=== PATIENT | male | born 1955 | race Caucasian/White ===

== ENCOUNTER 2023-06-20 20:06 | Emergency (ER) | payer MEDICARE, SELFPAY ==
[2023-06-20 20:08] VITALS: BMI 29.9
[2023-06-20 20:12] VITALS: BP 136/86
--- NOTE | 2023-06-20 20:36 | ED.GENMED ---
History of Present Illness
General
Chief Complaint: Abdominal Symptoms
Source: patient
Exam Limitations: none
Time Seen by Provider: 06/20/23 20:26
Travel History
Have you had any contact with someone who has COVID-19?: No
Do you have any symptoms of coronavirus? Fever > 100 degrees, chills, cough, shortness of breath, sore throat, loss of taste or smell, muscle aches, or headache?: No
History of Present Illness
History of Present Illness:
This is a 68 year old male that comes in with c/o right sided abd pain. States that he went out for dinner and when he got home he started to not feel well. States that he broke out into a sweat, was nauseated, vomiting and had diarrhea. States that
he then got dizzy and lower himself to the bathroom floor as it was cool. States that he laid there for a while and then got back up on the toilet. State that he felt unsure to get up. State that he started with severe right sided abd pain. States
that when EMS got there he also had right sided leg cramp and he was unable to get into the position that they wanted. States that he was SOB and dizzy. Denies any fever, chills, chest pain, headache, urinary burning.
Past History
Past History
ED Past Medical History: None; Negative Asthma, HTN, Hypercholesterolemia or NIDDM
ED Past Surgical History: None
Social History
Tobacco: Non-smoker
Alcohol: Occasional
Drug: None
Personal:
Living: with family
Employment: Employed
Review of Systems
Review of Systems
All Other Systems: ROS reviewed and negative except as documented in HPI and ROS
Constitutional: Reports other (Sweating); Denies fever or chills
EENT: Reports no symptoms
Respiratory: Reports trouble breathing; Denies cough
Cardiac: Reports no symptoms; Denies chest pain
ABD/GI: Reports abdominal pain, nausea, vomiting and diarrhea
: Reports no symptoms; Denies dysuria, frequency or urgency
Musculoskeletal: Reports no symptoms
Skin: Reports no symptoms
Neurological: Reports dizzy; Denies headache
Psychiatric: Reports no symptoms
Phy Exam
General Physical Exam
General Presentation: no apparent distress
General age: appears stated age
General Skin: warm and dry
General Habitus: normal
General Mental: alert
General Hydration: dry mucous membranes
ENT Exam
ENT Exam: TM's normal, pharynx normal and neck supple
Eye Exam
Eye Exam: EOMI
Cardiovascular Exam
Cardiovascular Exam: regular rate/rhythm, no edema, no murmur and normal peripheral pulses
Pulmonary Exam
Pulmonary Exam: lungs clear, no respiratory distress, no rales, chest non tender, no crackles, no rhonchi, no wheezing and no cough
Gastrointestinal Exam
Gastrointestinal Exam: normal bowel sounds, soft, no organomegaly, no pulsatile mass, non distended and tender (Slight right sided tenderness with palpation)
Musculoskeletal Exam
Musculoskeletal Exam: full ROM and no edema
Skin Exam
Skin Exam: normal color, warm/dry, no rash and no petechia
Psychiatric Exam
Psychiatric Exam: normal mood/affect
Course
Orders/Labs/Results
Orders:
Orders
06/20/23 20:34
Complete Blood Count/With Diff Urgent
Comprehensive Metabolic Panel Urgent
Lipase Urgent
06/20/23 20:35
CT Abd/pelvis W Iv Cont Urgent
Comment:
Reason For Exam: Right lower abd pain
0.9% Sodium Chloride 1000 ml [Nss] 1,000 ml IV BOLUS
Abnormal Lab Results
06/20/23
20:34
WBC 12.6 H 10^3/uL
(4.8-10.8)
Abs Immat Gran (auto) 0.1 H 10^3/uL
(0-0.05)
Absolute Neuts (auto) 9.9 H 10^3/uL
(1.4-6.5)
Absolute Monos (auto) 0.9 H 10^3/uL
(0.1-0.6)
Neutrophils % 79.0 H %
(42.2-75.2)
Lymphocytes % 12.8 L %
(20.5-51.1)
Chloride 109 H mmol/L
(98-107)
Glucose 103 H mg/dl
(70-99)
06/20/23 20:34
06/20/23 20:34
Leukocytosis, Glucose nonfasting. Chloride slightly elevated. Lipase normal at 45
Vital Signs
Initial and Last Documented VS:
Initial Vital Signs
Temp Pulse BP Pulse Ox
97.6 F 64 136/86 98
06/20/23 20:12 06/20/23 20:12 06/20/23 20:12 06/20/23 20:12
Last Documented Vital Signs
Temp Pulse BP Pulse Ox
97.6 F 64 136/86 96
06/20/23 20:12 06/20/23 20:12 06/20/23 20:12 06/20/23 20:16
MDM/Problems Addressed
Differential Diagnosis Includes:
Viral GI syndrome, Appendicitis,
MDM/Problems Addressed:
This is a 68 year old male that is brought in by ambulance with c/o right sided abd pain. Patient was out for dinner and when he came home he started to not feel well. States that he was sweaty and then started with vomiting and diarrhea. States
that he also became dizzy and thought he was going to pass out. States that he had right sided abd pain.
Will get labs. CT scan, Give IV fluids. Patient refused pain medication.
Back into see patient. Patient was sleeping. Awakened patient and explained that his blood work shows that his WBC are very slightly elevated. His CT shows that he has Enteritis. There is some sold stool in the bowel and also liquid that is noted.
Encouraged patient to increase his water intake to 8-8oz glasses daily. Patient to stay way form milk and milk products until the diarrhea stops. Patient to try chicken, rice and potatoes that are easily digested. Patient to follow up with the
family doctor. Patient to return with any concerns .
Chronic conditions affecting care:
NA
Acute Exacerbation and/or Progression of Chronic Illness:
NA
*Radiology
Radiology exam reviewed: radiology read reviewed (CT night hawk- NOrmal gallbladder. No biliary dilatation. No hydronephrosis or obstructing urinary calculi. bladder is unremarkable. Mild stool present within the colon. Mild liquid content within
the right colon and small bowel loops in the mid abd and pelvis may relate to enteritis. No free fluid ) and other (CT cont-or free air. Normal appendix. No bowel obstruction or bowel wall thickening. Lung bases are unremarkable. Moderate
degenerative changes within the spine,)
*Pulse Oximetry
Patient hypoxic: no
*EKG
Interpreted by ED Provider?: NA
Rate: EKG- N/A
*Lead Person Interpretation
Heart Rate: 76
Rhythm: sinus
*Critical Care Note
Total Time (30-74mins, 75-104mins- exclusive of procedures): Not Applicable
ED Attending Note
-
Portions of this chart may have been created with voice recognition software.� Occasional wrong word or��sound alike� substitutions may have occurred due to the inherent limitations of voice recognition software.
Discharge Plan
Departure
Patient Disposition: Home (Routine Discharge)
Date of Disposition: 06/20/23
Time of Disposition: 22:19
Patient with high blood pressure during this ER visit?: Yes
Condition: Good
Covid-19: Not Applicable
Discharge Problem:
Enteritis
Instructions: Abdominal Pain, BLOOD PRESSURE
Prescriptions:
No Action
Paxlovid 300 mg (150 mg x 2)-100 mg tablets,dose pack
See Rx Instructions .ROUTE .COMPLEX Qty: 30 0RF
Rx Instructions:
take TWO 150 mg tablets of nirmatrelvir with ONE 100 mg tablet of ritonavir twice daily for 5 days
Referrals:
Kishor Calvert DO [Family Provider] - Call in 1-3 days for appt
Activity Restrictions/Additional Instructions:
As discussed, your blood work shows that your WBC are very slightly elevated. This goes along with a viral illness that is noted on the CT scan. You have enteritis. This will go away just like it came. Please stay away from milk and milk products
until the diarrhea stops. Simple food that is easily digested is Chicken, rice and potatoes. You may use Tylenol 1000mg every 6 hours for pain and/or Ibuprofen 600mg every 6 hours with food. Follow up with the family doctor. Increase your water
intake to 8-8oz glasses daily. IF YOU HAVE INCREASED OR CHANGING ABD PAIN, OR YOU HAVE ANY OTHER CONCERNS PLEASE RETURN TO THE EMERGENCY ROOM.
Interventions
Interventions:
*Risk Screen - Suicide Last Done: 06/20/23 20:08
*General Assessment Last Done: 06/20/23 20:08
*Neglect/Abuse Screening Last Done: 06/20/23 20:08
ED- Fall Risk Assessment Last Done: 06/20/23 20:16
*ED COVID-19 Vaccine History Last Done: 06/20/23 20:12
OV-Xhewia-Mphmtqvvbl Assessment Last Done: 06/20/23 20:16
[2023-06-20] MEDS: NSS 1000 IV (20:45)
[2023-06-20 20:48] LABS: % Basophils 0.3 % (0-2); % Eosinophils 0.5 % (0-6); % Immature Granulocytes 0.4 % (0-0.5); % Lymphocytes 12.8 % (20.5-51.1); Absolute Eosinophils 0.1 10^3/uL (0-0.7); Absolute Immature Granulocytes 0.1 10^3/uL (0-0.05); Absolute Lymphocytes 1.6 10^3/uL (1.2-3.4); Absolute Monocytes 0.9 10^3/uL (0.1-0.6); Absolute Neutrophils 9.9 10^3/uL (1.4-6.5); Hematocrit 42.4 % (39.0-52.0); Hemoglobin 14.9 g/dL (13.0-18.0); Mean Corp Hgb Conc. 35.1 g/dL (33.0-37.0); Mean Corpuscular Hgb 30.4 pg (27.0-31.0); Mean Corpuscular Volume 86.5 fL (80.0-94.0); Mean Platelet Volume 9.2 fL (7.4-10.4); Nucleated Red Blood Cells % 0 % (-); Platelet Count 201 10^3/uL (130-400); Red Cell Dist. Width 13.1 % (11.5-14.5); White Blood Cell Count 12.6 10^3/uL (4.8-10.8)
[2023-06-20 21:00] VITALS: BP 128/85
[2023-06-20 21:03] LABS: ALT (SGPT) 32 U/L (0-50); AST (SGOT) 30 U/L (17-59); Albumin 4.1 g/dl (3.5-5.0); Alkaline Phosphatase 89 U/L (38-126); Blood Urea Nitrogen 20 mg/dl (9-20); Calcium 8.6 mg/dl (8.4-10.2); Carbon Dioxide 24 mmol/L (22-30); Chloride 109 mmol/L (98-107); Estimated Creatinine Clearance 100 ml/min; Glucose 103 mg/dl (70-99); Lipase 45 U/L (23-300); Potassium 3.5 mmol/L (3.5-5.1); Sodium 139 mmol/L (135-145); Total Bilirubin 0.6 mg/dl (0.2-1.3); Total Protein 6.8 g/dl (6.3-8.2); eGFR > 60.00
[2023-06-20 22:00] VITALS: BP 148/87
== END 2023-06-20 22:40 | disposition home or self-care (01) ==
LOC: EMR 20:06
PROVIDERS: EMERGENCY PHYSICIAN Emergency Medicine; FAMILY PHYSICIAN Family Medicine
DX: R10.9 Unspecified abdominal pain (principal); R11.2 Nausea with vomiting, unspecified; K52.9 Noninfective gastroenteritis and colitis, unspecified
CPT/HCPCS: 99284; 96360; 74177; 80053; 83690; 85025; Q9967

== ENCOUNTER → 2023-08-26 06:36 | Day surgery (SDC) | payer MEDICARE, SELFPAY | LOC: GI 06:36 | PROVIDERS: ATTENDING PHYSICIAN Surgery; FAMILY PHYSICIAN Family Medicine | DX: Z12.11 Encounter for screening for malignant neoplasm of colon (principal); D12.2 Benign neoplasm of ascending colon; K57.30 Diverticulosis of large intestine without perforation or abscess without bleeding; Z86.010 Personal history of colon polyps | CPT/HCPCS: 45380; 88305 ==

== ENCOUNTER 2024-05-27 18:52 | Inpatient (IN) | payer OTHER, SELFPAY ==
[2024-05-27] VITALS (18 sets, daily range): BP systolic 71–158; BP diastolic 54–97; BMI 30.9
[2024-05-27 15:55] LABS: % Basophils 0.2 % (0-2); % Eosinophils 0.3 % (0-6); % Immature Granulocytes 0.3 % (0-0.5); % Lymphocytes 8.8 % (20.5-51.1); % Monocytes 4.2 % (1.7-9.3); % Neutrophils 86.2 % (42.2-75.2); Absolute Lymphocytes 0.9 10^3/uL (1.2-3.4); Absolute Monocytes 0.4 10^3/uL (0.1-0.6); Absolute Neutrophils 8.4 10^3/uL (1.4-6.5); Hematocrit 42.6 % (39.0-52.0); Hemoglobin 14.5 g/dL (13.0-18.0); Mean Corpuscular Volume 88.2 fL (80.0-94.0); Mean Platelet Volume 9.3 fL (7.4-10.4); Nucleated Red Blood Cells % 0 % (-); Platelet Count 209 10^3/uL (130-400); Red Blood Cell Count 4.83 10^6/uL (4.70-6.10); Red Cell Dist. Width 12.8 % (11.5-14.5); White Blood Cell Count 9.8 10^3/uL (4.8-10.8)
--- NOTE | 2024-05-27 16:06 | ED.GENMED ---
History of Present Illness
General
Chief Complaint: Fainting/Passed Out
Source: patient
Exam Limitations: none
Time Seen by Provider: 05/27/24 15:41
Nursing documentation reviewed up to this point in time: agreed with
History of Present Illness
History of Present Illness:
Patient presents to ED secondary to sudden onset of weakness, chills, dizziness, and nausea, after he came back home from running errands. Patient does report having had root canal performed this morning on 830 dentist office, during which time he
received local anesthesia. Patient came home and took first tablet of amoxicillin around 10 AM. Patient went outside to run errands and on his way back, that is when he started to feel aforementioned symptoms. Due to extreme weakness and
dizziness, patient reports falling down and hitting his head in the process. Patient was able to call his to come home, prior to passing out. When 911 arrived at scene, patient was ill-appearing with initial blood pressure systolic in the 60s
with heart rate in the 30s to 50s. Since then, patient has become more awake with stable vital signs. Upon arrival, patient states that he is feeling better, but does feel slightly dizzy and queasy. Denies chest pain or shortness of breath.
Denies palpitations preceding syncope. Denies recent illness. Denies sick contact. Denies recent change in medications or diet. Denies previous history of similar symptoms. Patient otherwise is healthy and does not take any medications daily.
Past History
Past History
ED Past Medical History: None; Negative Asthma, HTN, Hypercholesterolemia or NIDDM
ED Past Surgical History: None
Social History
Tobacco: Non-smoker
Alcohol: Occasional
Drug: None
Personal:
Living: with family
Employment: Employed
Review of Systems
Review of Systems
Allergies reviewed?: Yes
All Other Systems: ROS reviewed and negative except as documented in HPI and ROS
Constitutional: Reports no symptoms
Respiratory: Reports no symptoms
Cardiac: Reports no symptoms
ABD/GI: Reports no symptoms
Musculoskeletal: Reports no symptoms
Skin: Reports no symptoms
Neurological: Reports no symptoms
Phy Exam
Physical Exam
Physical Exam:
Physical Exam
General: no apparent distress, not acutely ill. afebrile
Head: nc/at. eomi
Neck: supple. normal range of motion.
Heart: s1/s2 regular rate and rhythm, no murmur. equal radial pulses.
Lungs: no acute respiratory distress. clear bilaterally
Abdomen: normal bowel sounds. not tender.
Neuro: alert and oriented x 3. no focal neurological deficits
Skin: no rash
Psychiatric: well kept. interactive and cooperative
Extremities: no edema. no calf tenderness.
Course
Orders/Labs/Results
Orders:
Orders
05/27/24 Dinner
Clear Liquid
At Your Request: Full Participation
05/27/24 15:41
Electrocardiogram (*1) Urgent
Reason for Study: Other
Other Reason for Exam: Respiratory Distress
EKG- Treatment ONCE
05/27/24 15:44
COVID-19 Antigen Urgent
Source: Nasal Swab
Complete Blood Count/With Diff Urgent
Comprehensive Metabolic Panel Urgent
Influenza A+B Rapid Molecular Urgent
LIZZY Source: Nasal Swab
Specimen Description:
05/27/24 16:13
0.9% Sodium Chloride 500 ml [Nss] 500 ml IV BOLUS
05/27/24 16:38
CT Head W/o Iv Contrast Urgent
Comment:
Reason For Exam: syncope with trauma
05/27/24 16:57
Blood Culture Q30M
LIZZY Source: Blood/Venous
Specimen Description:
Blood Culture Q30M
LIZZY Source: Blood/Venous
Specimen Description:
05/27/24 17:10
Atropine Sulfate [Atropine 0.1 mg/ml Syringe] 0.5 mg IV NOW STA
05/27/24 17:47
Acetaminophen [Tylenol] 650 mg PO NOW STA
Ibuprofen [Motrin] 400 mg PO NOW STA
05/27/24 17:49
CARDIOLOGY CONSULT Routine
Consulting Provider: Ricardo Bates
Was physician already notified: Yes
05/27/24 18:43
Admit/Transfer Patient As Directed
Co-Sign Provider:
Level of Care: Inpatient admission
Assign to:: IVU
Physician / Group: bailey tong
Diagnosis: syncope likely vasovagal, diarrhea concern viral vs bacterial new RBBB
Reason for Hospitalization: syncope likely vasovagal, diarrhea concern viral vs bacterial new RBBB
Expected length of stay greater than two midnights?: Yes
ELOS- Estimated Length of Stay in days: 3
I certify the patient meets the requirements for IP care: Yes
Code Status As Directed
Resuscitation Status: Full Code
05/27/24 18:45
PRN Pain Medication Management As Directed
May give lesser potent ordered pain med per pt: Yes
preference::
Protocol:: Medication orders for pain may be administered in a
manner that supports deferring to patient preference
when the pt is:
- Requesting an ordered lesser potent pain medication.
Least to most potent pain medications are defined
as: acetaminophen < NSAID < tramadol < opioids
(morphine, oxycodone, hydromorphone).
- Requesting a lesser dose of the same medication IF
ORDERED.
- Requesting a less intrusive route of administration
if both routes are prescribed by the provider (PO <
IV).
05/27/24 18:46
Norovirus by PCR Routine
LIZZY Source: Feces/Stool
Specimen Description:
STOOL [C difficile Antigen & Toxins] Routine
LIZZY Source: Feces/Stool
Specimen Description:
Stool Culture Routine
LIZZY Source: Feces/Stool
Specimen Description:
Stool For WBC Routine
LIZZY Source: Feces/Stool
Specimen Description:
05/27/24 18:49
Troponin I Urgent
05/27/24 18:51
Ampicillin/Sulbactam 3 G [Unasyn] 3 gm 0.9% Sodium Chloride 100 ml [Nss] 100 ml IV NOW
05/27/24 20:06
Ondansetron Injectable [Zofran] 4 mg IV Q6HPRN PRN
05/27/24 20:06
Activity As Directed
Activity Level: With Assistance
Intake/ Output As Directed
Frequency: Per unit guidelines
Pneumatic Compression Sleeves As Directed
Type: Knee high
Vital Signs As Directed
Frequency: Per unit guidelines
OT Consult [Ot Eval And Treat] Routine
Ot Eval And Treat Routine
Pt Eval And Treat Routine
Activity Level: As Tolerated
DX Deep Vein Thrombosis Video Routine
05/27/24 22:00
Acetaminophen [Tylenol] 650 mg PO Q4HPRN PRN
05/28/24 00:00
Ibuprofen [Motrin] 400 mg PO Q6HPRN PRN
05/28/24 02:00
Ampicillin/Sulbactam 3 G [Unasyn] 3 gm 0.9% Sodium Chloride 100 ml [Nss] 100 ml IV Q6H
05/28/24 06:00
EKG [Electrocardiogram (*1)] IN AM
Reason for Study: Abnormal EKG
Complete Blood Count/With Diff IN AM
Comprehensive Metabolic Panel IN AM
Magnesium IN AM
Troponin I IN AM
05/28/24 08:00
Orthostatic Vital Signs As Directed
Orthostatic VS Frequency: Daily
Abnormal Lab Results
05/27/24 05/27/24
15:44 17:02
Absolute Neuts (auto) 8.4 H 10^3/uL
(1.4-6.5)
Absolute Lymphs (auto) 0.9 L 10^3/uL
(1.2-3.4)
Neutrophils % 86.2 H %
(42.2-75.2)
Lymphocytes % 8.8 L %
(20.5-51.1)
BUN 23 H mg/dl
(9-20)
Glucose 122 H mg/dl
(70-99)
POC Glucose 113 H mg/dl
(70-99)
05/27/24 15:44
05/27/24 15:44
Vital Signs
Initial and Last Documented VS:
Initial Vital Signs
Temp Pulse Resp BP Pulse Ox
98 F 86 16 127/87 99
05/27/24 15:32 05/27/24 15:32 05/27/24 15:32 05/27/24 15:32 05/27/24 15:32
Last Documented Vital Signs
Temp Pulse Resp BP Pulse Ox
97.7 F 96 20 149/92 95
05/27/24 20:00 05/27/24 19:45 05/27/24 20:00 05/27/24 19:30 05/27/24 20:00
MDM/Problems Addressed
MDM/Problems Addressed:
Patient initial presentation consistent with likely vasovagal response, with improvement over time.
During evaluation in ED, while lying in stretcher, patient noted to once again become diaphoretic and dizzy, associated with hypotension and bradycardia, resulting in brief episode of syncope. Sinus bradycardia noted on the monitor. At which
point, patient was given 0.5 mg atropine, with improvement in symptoms along with improved heart rate.
Discussed with Dr.DL Bates (cardiology) - symptoms appear to be vasovagal in nature. Does not feel that an acute cardiac intervention is necessary at this time. Will see patient as consult.
Critical care statement: A total of 40 minutes of critical care time was provided for this patient. This includes management of unstable vital signs, evaluation of the patient at bedside, reviewing the patient's pertinent medical records, discussion
with consultants, review of old EKGs and review of pertinent medical records. This time with separate from time utilized to perform the aforementioned documented procedures
*EKG
Interpreted by ED Provider?: Yes
Heart Rate: 85
Rate: normal
Rhythm: sinus
[place]: normal axis
Interval: normal interval
*Critical Care Note
Total Time (30-74mins, 75-104mins- exclusive of procedures): 40 min
ED Attending Note
-
Portions of this chart may have been created with voice recognition software.� Occasional wrong word or��sound alike� substitutions may have occurred due to the inherent limitations of voice recognition software.
Discharge Plan
Departure
Patient Disposition: Admit
Date of Disposition: 05/27/24
Time of Disposition: 17:42
Admit to: Telemetry
Presentation/result/management discussed w/ accepting MD/DO: Hospitalist
Discharge Problem:
Syncope
Interventions
Interventions:
*Risk Screen - Suicide Last Done: 05/27/24 19:00
*General Assessment Last Done: 05/27/24 15:33
*Neglect/Abuse Screening Last Done: 05/27/24 15:33
ED- Fall Risk Assessment Last Done: 05/27/24 15:33
*Nursing Disposition Last Done: 05/27/24 19:42
ED- Cardiac Assessment Last Done: 05/27/24 17:29
ED- Neurological Assessment Last Done: 05/27/24 16:04
Discharge Date and Time
Discharge Date/Time: 05/27/24 19:42
[2024-05-27 16:08] LABS: ALT (SGPT) 23 U/L (0-50); AST (SGOT) 22 U/L (17-59); Albumin 4.4 g/dl (3.5-5.0); Alkaline Phosphatase 85 U/L (38-126); Blood Urea Nitrogen 23 mg/dl (9-20); Calcium 9.3 mg/dl (8.4-10.2); Carbon Dioxide 25 mmol/L (22-30); Chloride 102 mmol/L (98-107); Estimated Creatinine Clearance 74 ml/min; Glucose 122 mg/dl (70-99); Potassium 3.7 mmol/L (3.5-5.1); Sodium 137 mmol/L (135-145); Total Bilirubin 0.8 mg/dl (0.2-1.3); Total Protein 7.2 g/dl (6.3-8.2); eGFR > 60.00
[2024-05-27 16:38] LABS: COVID-19 Antigen Negative (Negative)
[2024-05-27] MEDS: NSS 500 IV (16:38)
[2024-05-27] MEDS: ATROPINE 0.1 MG/ML SYRINGE 0.5 MG IV (17:10)
--- NOTE | 2024-05-27 17:11 | EDRN ---
Pt became diaphoretic, was unresponsive and became bradycardic @ 38-42 bpm, left eye gaze, pt can nod yes/no, alert after 1/[address] scan.
[2024-05-27 17:13] LABS: Glucose - Point of Care 113 mg/dl (70-99)
--- NOTE | 2024-05-27 17:55 | HPS.HSE ---
Family Physician
-
Family Physician: INTERVIEWE UNKNOWN - PT NOT
Chief Complaint
-
Dry heaves, watery diarrhea, syncope
History of Present Illness
69-year-old male who presented to the ER complaining of feeling hot with belly cramping he then was trying to get to the bathroom but was feeling very hot and passed out he states he had watery stool everywhere all over the bathroom as he was trying
to make it to the powder room where he eventually was and was dry heaving. His states he did pass out in the kitchen after multiple episodes of diarrhea. The patient does recall being told he passed out in the kitchen he does not the
incident. He does however remember feeling abdominal cramping feeling very hot and nauseous as if going to pass out. He does report a root canal this morning at 830 where he he had local anesthesia around the gumline. He states after that he and
his went out shopping and he felt fine they both ate a separate soft pretzel. He then came home and that is when his abdominal cramping started. He did take prior Tylenol, Motrin and 1 dose of amoxicillin. His reports this is not the
first time he has passed out he passed out before when his finger was caught or if he tends to get anything abdominal related otherwise he is fine. EMS arrived at the home and noted that his blood pressure was systolic 60s with heart rate in the
30s to 50s. Upon arrival in the ER he was reporting he felt better however he was complaining of feeling dizzy and queasy. He denies headache, fever, chills, chest pain, palpitations, cough, shortness of breath, abdominal pain, vomiting, diarrhea,
sick contacts, recent illness . He has past medical history of syncope post cutting his finger
Medical History
Past Medical History
Past Medical History: Reports Other
Additional Past Medical History:
Syncope post cutting his finger
Past Surgical History: Reports None
Social History
Tobacco: Non-smoker
Alcohol: Occasional
Drug: None
Personal:
Living: With Family ()
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
Family History
Family History: Other (Father CVA, 77, mother living age 92 balance disorder)
Allergies / Home Medications
Allergies reflects when Allergies were last updated in [employer].
Home Medications with original date entered in [employer]
Allergy/Medication List:
Allergies
Allergy/AdvReac Type Severity Reaction Status Date / Time
No Known Allergies Allergy Verified 05/27/24 15:33
Home Medications
acetaminophen 325 mg tablet (Tylenol) 650 mg PO Q6HPRN PRN mild pain 05/27/24
amoxicillin 500 mg capsule 500 mg PO Q8H 05/27/24
Review of Systems
-
History Source: Patient and Family ( and daughter )
A 12 point ROS was completed and negative except as noted: Yes
Constitutional: Denies Fever, Fatigue or Chills
EENT: Reports Other (Dental pain left-sided status post root canal); Denies Sore Throat
Respiratory: Denies Cough or Trouble Breathing
Cardiac: Reports Diaphoresis and Syncope (Post abdominal pain/diarrhea); Denies Chest Pain or Palpitations
Abdomen/GI: Reports Abdominal Pain, Nausea (Dry heaves) and Diarrhea (Watery diarrhea); Denies Constipated, Bloody Stools or Black Stools
: Denies Dysuria, Frequency, Flank Pain, Incontinence, Difficulty Voiding, Urgency or Bleeding
Musculoskeletal: Denies Joint Pain or Edema
Skin: Denies Itching or Rash
Neurological: Reports Dizzy; Denies Headache or Weakness
Endocrine: Reports No Symptoms
Hematologic/Lymphatic: Reports No Symptoms
Psych: Reports Calm
Physical Exam
Vital Signs
Vital Signs
Temp Pulse Resp BP Pulse Ox
98.8 F 84 15 137/79 99
05/27/24 15:33 05/27/24 17:30 05/27/24 17:30 05/27/24 17:30 05/27/24 17:30
Physical Exam
General: Conversant and Pain (Abdomen); No Fever or Chills
HEENT: NormoCephalic, Anicteric, PERRLA, [place] Conjunctivae and No Ptosis
Respiratory: Clear; No Wheezes, Rales or Rhonchi
Cardiac: S1/S2 and Regular Rhythm; No Murmur, Rub, Gallop or Peripheral Edema
Breast: Deferred by me
GI: Soft, Non Tender, Non Distended, Normal Bowel Sounds and No Hepatosplenomegaly
Genito-urinary: Deferred by me
Musculoskeletal: No Clubbing, No Cyanosis and No Edema
Skin: Warm and Dry; No Rash or Jaundice
Neuro: Awake, Alert, Oriented (X 3 but is forgetful about today and incidents that occurred he states due to passing out he is unsure), No Motor Deficits (Moving all extremities in bed), Cranial Nerves Intact and No Sensory Deficits; No Slurred
Speech, Facial Droop, Tremors or Sedated
Psych: Anxious
Laboratory Results
-
05/27/24 15:44
05/27/24 15:44
Laboratory Results
Total Bilirubin 0.8 mg/dl (0.2-1.3) 05/27/24 15:44
AST 22 U/L (17-59) 05/27/24 15:44
ALT 23 U/L (0-50) 05/27/24 15:44
Alkaline Phosphatase 85 U/L (38-126) 05/27/24 15:44
Data Reviewed
-
CT Scan: Report Reviewed by me
Lab Data: Labs Reviewed by me
Impression/Plan
-
Impression/plan:
Admit to IVU
#Syncope with Bradycardia likely vasovagal from abdominal pain /Acute watery diarrhea-dry heaves
Reported approximately 4 syncopal events today
-COVID, influenza negative
-Consult [facility] cardiology
-2D Echo
-Check C. difficile, norovirus stool cultures, stool WBC
-IV NSS given in ER we will hold on further fluids
-May give clear liquid diet
-IV Unasyn
-IV Zofran as needed
CT head: No acute intracranial abnormality
#RBBB�new
-Consult [facility] cardiology
-2D Echo
EK bpm, NSR, incomplete RBBB
no significant change from July 04, 2020
#Infected tooth status post root canal today 05/27/2024
-Patient to be on amoxicillin due to current dry heaving will change to IV Unasyn
DVT prophylaxis
SCDs
Full code
[2024-05-27] MEDS: TYLENOL 650 MG PO ×2 (18:20→21:52)
[2024-05-27] MEDS: MOTRIN 400 MG PO (18:20)
--- NOTE | 2024-05-27 18:44 | W.PN.UPDATE ---
Update Note
Progress Note Update
69-year-old male, history of syncope, who had root canal procedure in the morning, was running errands, and passed out later in the day.
Apparently also complained of watery diarrhea that started on day of admission.
Per ED signout, patient was found hypotensive with bradycardia, status post atropine 0.5. Cardiology was consulted and felt vasovagal syncope in nature.
A/P:
# Syncope, suspect vasovagal, but will admit to workup cardiogenic cause
CT head NAD
EKG reviewed, normal sinus rhythm, incomplete RBBB
Check echo, orthostatic vital sign, monitor telemetry, for completeness sake
Clear liquid for now due to patient's complaint of nausea, advance diet as tolerated
Cardiology consult
PT OT eval
# Acute watery diarrhea
COVID, influenza negative
Follow stool culture, C. difficile and norovirus
# Status post on day of admission 05/27/2024
Can cover with IV Unasyn in place of prior to admission amoxicillin
DVT prophylaxis SCDs
Full code
Discussed with several family members at bedside
[2024-05-27] MEDS: UNASYN IV (19:00)
--- NOTE | 2024-05-27 19:04 | EDRN ---
attempted to call report to IVU, will call back in 15 minutes again.
--- NOTE | 2024-05-27 22:10 | PTCARENOTE ---
received the patient from the ED. AAOx3. family at the bedside. denies any lightheadedness/dizziness. ambulated from the stretcher to the bed with no issues. complains of left upper tooth pain- root canal this morning prior to admission. SR-ST on
tele 70s-100s. increased HR with movement. bp stable. reviewed plan of care with patient. verbalized understanding. educated patient to inform RN with any new changes. call jones within reach.
[2024-05-28] VITALS (11 sets, daily range): BP systolic 91–156; BP diastolic 62–94; PULSE 79–87
[2024-05-28] MEDS: UNASYN IV ×3 (02:38→14:19)
[2024-05-28 03:49] LABS: % Basophils 0.2 % (0-2); % Eosinophils 2.8 % (0-6); % Immature Granulocytes 0.3 % (0-0.5); % Lymphocytes 7.5 % (20.5-51.1); % Neutrophils 76.2 % (42.2-75.2); Absolute Eosinophils 0.3 10^3/uL (0-0.7); Absolute Lymphocytes 0.7 10^3/uL (1.2-3.4); Absolute Monocytes 1.2 10^3/uL (0.1-0.6); Absolute Neutrophils 7.1 10^3/uL (1.4-6.5); Hematocrit 38.7 % (39.0-52.0); Mean Corp Hgb Conc. 33.6 g/dL (33.0-37.0); Mean Corpuscular Hgb 29.7 pg (27.0-31.0); Mean Corpuscular Volume 88.4 fL (80.0-94.0); Mean Platelet Volume 9.3 fL (7.4-10.4); Nucleated Red Blood Cells % 0 % (-); Platelet Count 190 10^3/uL (130-400); Red Blood Cell Count 4.38 10^6/uL (4.70-6.10); Red Cell Dist. Width 12.8 % (11.5-14.5); White Blood Cell Count 9.3 10^3/uL (4.8-10.8)
[2024-05-28 04:11] LABS: ALT (SGPT) 18 U/L (0-50); AST (SGOT) 19 U/L (17-59); Albumin 3.1 g/dl (3.5-5.0); Alkaline Phosphatase 63 U/L (38-126); Blood Urea Nitrogen 32 mg/dl (9-20); Calcium 8.4 mg/dl (8.4-10.2); Carbon Dioxide 23 mmol/L (22-30); Chloride 108 mmol/L (98-107); Estimated Creatinine Clearance 69 ml/min; Glucose 104 mg/dl (70-99); Magnesium 1.8 mg/dl (1.6-2.3); Potassium 4.3 mmol/L (3.5-5.1); Sodium 137 mmol/L (135-145); Total Bilirubin 0.6 mg/dl (0.2-1.3); Total Protein 6.1 g/dl (6.3-8.2); eGFR > 60.00
[2024-05-28 04:19] LABS: Troponin I < 0.012 ng/ml
[2024-05-28] MEDS: TYLENOL 650 MG PO ×2 (04:25→12:25)
[2024-05-28] MEDS: MOTRIN 400 MG PO ×2 (04:26→12:24)
--- NOTE | 2024-05-28 05:57 | PTCARENOTE ---
patient slept well overnight. no episodes of bradycardia/hypotension/syncope. SR 70s.
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
--- NOTE | 2024-05-28 11:54 | W.PN.HOSP.TC ---
Today's Communication/Plan
-
DC today if tolerating diet , after lunch.
Assessment / Plan
Assessment / Plan
69-year-old male, history of syncope, who had root canal procedure in the morning, was running errands, and passed out later in the day.
Patient was found hypotensive with bradycardia, status post atropine 0.5.
Cardiology was consulted and felt vasovagal syncope in nature.
A/P:
# Syncope, suspect vasovagal, but will admit to workup cardiogenic cause
-CT head NAD
EKG reviewed, normal sinus rhythm, incomplete RBBB, repeat EKG NSR, rate increased to 81 today
Advance diet as tolerated-tolerated breakfast well
Cardiology consult appreciated-they suspect vasovagal syncope, and rec ok to DC after lunch if tolerating diet, with Cards f/u -they will arrange for outpatient monitoring, and echocardiogram and follow-up visit.
PT eval
# Acute watery diarrhea
COVID, influenza negative
Follow stool culture, C. difficile and norovirus
stable today-normal BM today
# Status post root canal, day of admission 05/27/2024
Can cover with IV Unasyn in place of prior to admission amoxicillin- will change back to OP abx on DC
DVT prophylaxis SCDs
Full code
Discussed with several family members at bedside
Plan to dc later today
Full code
Anticipated Discharge: Today
Subjective/Interval History
-
Date of Service: May 28, 2024
The patient feels a lot better today. Seen by Cards.
No further events on the monitor.
No CP, no SOB, no palps.
No n/v/d
Objective Data
-
Labs:
Laboratory Results
05/28/24
03:14
WBC 9.3
Hgb 13.0
Hct 38.7 L
Plt Count 190
Sodium 137
Potassium 4.3
Chloride 108 H
Carbon Dioxide 23
BUN 32 H
Creatinine 1.3
Glucose 104 H
Calcium 8.4
Total Bilirubin 0.6
AST 19
ALT 18
Alkaline Phosphatase 63
Vital Signs:
Vital Signs
Temp Pulse Resp BP Pulse Ox
97.7 F 92 18 98/62 95
05/28/24 08:03 05/28/24 03:15 05/28/24 08:03 05/28/24 03:11 05/28/24 08:15
I&O
05/27/24 05/28/24 05/29/24
06:59 06:59 06:59
Intake Total 250 / 250
Output Total 400 / 400
Balance -150 / -150
Review of Systems
-
All other systems: Reviewed and negative
Physical Exam
-
General: Well Developed, Well Nourished, No Apparent Distress and Comfortable
HEENT: Normocephalic, Atraumatic and Moist Mucous Membranes
Respiratory: Clear to Auscultation
Cardiac: Regular Rhythm and S1/S2
GI: Soft, Nontender and Nondistended
Musculoskeletal: No Clubbing, No Cyanosis and No Edema
Neuro: AO x 3 and No Motor Deficits
Psych: Calm
Data Reviewed
-
Labs: Labs Reviewed by me
--- NOTE | 2024-05-28 16:30 | W.DCSUMMARY ---
Discharge Summary
Discharge Data
Date of Admission: 05/27/24
Date of Discharge: 05/28/24
-
Pending Results: No
Hospital Course
HPI: 69-year-old male, history of syncope, who had root canal procedure in the morning, was running errands, and passed out later in the day.
Apparently also complained of watery diarrhea that started on day of admission. Per ED signout, patient was found hypotensive with bradycardia, status post atropine 0.5. Cardiology was consulted and felt vasovagal syncope in nature.
The patient was admitted for work-up for possible cardiogenic syncope. CT head NAD, EKG showed incomplete RBBB. Diarrhea improved, negative for C. Difficile, no WBC in stool, blood cultures NGTD, COVID 19 negative, Flu negative; Pt was continued on
IV Unasyn antibiotics s/p root canal/infected tooth. Cardiology consultation was placed. Repeat EKG with improved rate. The patient advanced diet, and tolerated it well. No further cardiac events while in the hospital. Per cardiology noted, the
triggers for his fairly profound episode yesterday likely include the administration of epinephrine and volume depletion with possible underlying pain and anxiety related to the dental procedure. Cardiology suspected vasovagal etiology for syncope,
and also recommend the patient follow-up with echocardiogram and outpatient cardiac monitoring, which they have arranged. He was discharged on home meds including outpatient antibiotics and OTC motrin, for f/u with his PCP and Cardiology.
The patient was discharged to home in stable and improved condition.
Discharge Plan
-
Patient Disposition: Home (Routine Discharge)
Discharge Diagnosis/Procedures: Vasovagal syncope
Diet: Low Cholesterol
Activity: No restrictions
Driving Restrictions: Limit drive until you are seen by your doctor
Bathing Restrictions: None
Others Tests: Echocardiogram to be arranged by your Spot Worker, Holter Monitor to be arranged by your Spot Worker
Referrals:
Ricardo Bates MD [Active] - (Cardiology office will call you on Thursday05/30/[address], echocardiogram, and follow up appointment. )
UNKNOWN - PT NOT,INTERVIEWE [Family Provider] - (Follow up with your primary care doctor in [address] Kishor Calvert)
Prescriptions:
Continued
amoxicillin 500 mg Capsule
500 mg PO Q8H
Rx Instructions:
START 05/27/24 X7 DAYS
acetaminophen [Tylenol] 325 mg Tablet
650 mg PO Q6HPRN PRN (Reason: mild pain)
Discharge Orders:
Discharge Patient (As Directed); Ordered 05/28/24
Ordered By: Arabella Montero
Discharge Date and Time
Discharge Date/Time: 05/28/24 17:06
Print Language: CANADIAN
--- NOTE | 2024-05-28 17:02 | PTCARENOTE ---
05/28/24 1700 Discharge order given, IV and Telem pack removed. Explained discharge instructions, medications and calling to make f/u appointments. Pt had tolerated eating breakfast and lunch. VSS and afebrile during shift, Pulse ox>95% on room air.
Worked with PT-was cleared for home. Pt and walked around in room and in hallway without any s/s symptoms of lightheaded and dizziness.
== END 2024-05-28 17:06 | disposition home or self-care (01) | DRG 315 ==
LOC: IVU 18:52
PROVIDERS: Clinical Nurse Specialist Family Health; ADMITTING PHYSICIAN Internal Medicine; ATTENDING PHYSICIAN Internal Medicine; CONSULT PHYSICIAN Internal Medicine Cardiovascular Disease; EMERGENCY PHYSICIAN Emergency Medicine
DX: I95.9 Hypotension, unspecified (principal); I47.19 Other supraventricular tachycardia; R55 Syncope and collapse; I45.10 Unspecified right bundle-branch block; R19.7 Diarrhea, unspecified; E86.9 Volume depletion, unspecified; T44.5X5A Adverse effect of predominantly beta-adrenoreceptor agonists, initial encounter; Z11.52 Encounter for screening for COVID-19; Z82.3 Family history of stroke; Z98.818 Other dental procedure status
CPT/HCPCS: 70450; 80053; 82962; 83735; 84484; 85025; 87040; 87045; 87046; 87324; 87427; 87449; 87502; 87798; 87811; 89055; 93005; 96365; 96375; 97162; 99291

== ENCOUNTER → 2024-06-16 07:00 | Outpatient (REF) | payer OTHER, SELFPAY | LOC: RCS 07:00 | PROVIDERS: ATTENDING PHYSICIAN Internal Medicine Cardiovascular Disease; FAMILY PHYSICIAN Family Medicine | DX: R55 Syncope and collapse (principal); R00.1 Bradycardia, unspecified | CPT/HCPCS: 93306 ==

== ENCOUNTER 2024-11-25 12:49 | Inpatient (IN) | payer OTHER, SELFPAY ==
[2024-11-25] VITALS (14 sets, daily range): BP systolic 91–166; BP diastolic 49–103; BMI 31.7; BMI 32.0
[2024-11-25 08:15] LABS: Urine Character Slightly Cloudy (Clear)
[2024-11-25] MEDS: ATIVAN 0.5 MG IV ×2 (08:31→08:49)
[2024-11-25] MEDS: TORADOL 15 MG IV (08:32)
[2024-11-25 08:36] LABS: Urine Red Blood Cell 0-2 /HPF (0-2); Urine Squamous Cell 0-2 /LPF (Few)
--- NOTE | 2024-11-25 08:37 | ED.GENMED ---
History of Present Illness
General
Chief Complaint: Urinary Symptoms
Source: patient and spouse
Exam Limitations: none
Time Seen by Provider: 11/25/24 08:06
Nursing documentation reviewed up to this point in time: agreed with
History of Present Illness
History of Present Illness:
69-year-old male presenting to the emergency department today with concerns of frequent urination and chills achiness starting yesterday. Claims that he thinks he had a fever this morning and took Tylenol. Denies any chest pain shortness of
breath. Does have a history of enlarged prostate but does not take any daily medications.
Past History
Past History
ED Past Medical History: None; Negative Asthma, HTN, Hypercholesterolemia or NIDDM
ED Past Surgical History: None
Social History
Tobacco: Non-smoker
Alcohol: Occasional
Drug: None
Personal:
Living: with family
Employment: Employed
Review of Systems
Review of Systems
Allergies reviewed?: Yes
All Other Systems: ROS reviewed and negative except as documented in HPI and ROS
Phy Exam
Physical Exam
Physical Exam:
GENERAL: Alert , in no apparent distress
EYE: pupils equal and reactive
NECK: Supple, no significant adenopathy.
ENT: o/p clr, mmm.
CARDIAC: Regular rate and rhythm .
LUNGS: Clear breath sounds bilaterally, no acute respiratory distress, no wheezes/rales/rhonchi
ABDOMEN: Soft, without focal tenderness, no r/g, no cvat
NEUROLOGICAL: Alert and oriented, no focal neuro deficits
SKIN: Warm and dry, skin intact.
MUSCULOSKELETAL: No edema, well perfused.
PSYCH: Normal and appropriate interaction.
Course
Orders/Labs/Results
Orders:
Orders
11/25/24
Electrocardiogram (*1) Stat
Reason for Study: Tachycardia
Comment: DONE
11/25/24 08:04
Urinalysis Reflex To Culture Urgent
Date Specimen was Collected: 11/25/24
Time Specimen was Collected: 08:03
Urine Microscopic Reflex Cult Urgent
Urine Culture Urgent
LIZZY Source: U
Specimen Description:
Date Specimen was Collected: 11/25/24
Time Specimen was Collected: 08:03
11/25/24 08:18
0.9% Sodium Chloride 1000 ml [Nss] 1,000 ml IV BOLUS
Ketorolac [Toradol] 15 mg IV NOW STA
11/25/24 08:26
Lorazepam [Ativan] 0.5 mg IV NOW STA
11/25/24 08:43
Complete Blood Count/With Diff Urgent
Comprehensive Metabolic Panel Urgent
Lactic Acid Urgent
11/25/24 08:48
Lorazepam [Ativan] 0.5 mg IV NOW STA
11/25/24 09:00
Acetaminophen 1000MG/100Ml [Ofirmev] 1,000 mg in 100 ml IV ONCE
Acetaminophen IV Indication:: No TX & No Enteral Access
11/25/24 09:06
Acetaminophen 1000MG/100Ml [Ofirmev] 1,000 mg in 100 ml .ROUTE .STK-MED
11/25/24 09:13
CT Abd/pel Without Iv Or Oral Urgent
Comment:
Reason For Exam: uti septic pain
CefTRIAXone [Rocephin] 2,000 mg IV NOW STA
11/25/24 09:19
Sterile Water [Sterile Water For Injection] 20 ml .ROUTE .STK-MED
11/25/24 09:26
0.9% Sodium Chloride 1000 ml [Nss] 3,200 ml IV NOW STA
11/25/24 09:27
Vancomycin [Vancocin] 2,000 mg 0.9% Sodium Chloride 500 ml [Nss] 500 ml IV NOW
11/25/24 09:43
Blood Culture Q30M
LIZZY Source: Blood/Venous
Specimen Description:
11/25/24 09:48
Blood Culture Q30M
LIZZY Source: Blood/Venous
Specimen Description:
11/25/24 12:00
Lactate Level [Lactic Acid] Urgent
Abnormal Lab Results
11/25/24 11/25/24
08:04 08:43
WBC 20.8 H 10^3/uL
(4.8-10.8)
Abs Immat Gran (auto) 0.2 H 10^3/uL
(0-0.05)
Absolute Neuts (auto) 18.8 H 10^3/uL
(1.4-6.5)
Absolute Lymphs (auto) 1.1 L 10^3/uL
(1.2-3.4)
Absolute Monos (auto) 0.7 H 10^3/uL
(0.1-0.6)
Immature Gran % 0.8 H %
(0-0.5)
Neutrophils % 90.4 H %
(42.2-75.2)
Lymphocytes % 5.0 L %
(20.5-51.1)
Glucose 137 H mg/dl
(70-99)
Lactic Acid 9.0 H* mmol/L
(0.7-2.0)
Total Protein 8.5 H g/dl
(6.3-8.2)
Albumin 5.1 H g/dl
(3.5-5.0)
Urine Ketones 1+ A
(Negative)
Ur Occult Blood Reflex 3+ A
(Negative)
Urine Nitrite (Reflex) Positive A
(Negative)
Leukocyte Esterase Rfl 3+ A
(Negative)
Urine WBC (Reflex) 90-100 A /HPF
(0-5)
Urine Bacteria (Reflex) Many A
(Negative)
Urine Albumin (Reflex) 3+ A
(Neg - Trace)
11/25/24 08:43
08/08/25 08:43
Vital Signs
Initial and Last Documented VS:
Initial Vital Signs
Temp Pulse Resp BP Pulse Ox
99.9 F 117 16 166/103 98
11/25/24 07:57 11/25/24 07:57 11/25/24 07:57 11/25/24 07:57 11/25/24 07:57
Last Documented Vital Signs
Temp Pulse Resp BP Pulse Ox
104.2 F H 105 12 91/55 96
11/25/24 09:00 11/25/24 11:02 11/25/24 11:02 11/25/24 11:02 11/25/24 11:02
MDM/Problems Addressed
MDM/Problems Addressed:
69-year-old male presenting to the emergency department today with concerns of frequency and urgency of urination starting yesterday as well as chills body ache fatigue. Roughly 30 minutes into the patient's stay the patient became very anxious
temperature 104 he became altered and was not responding verbally. At this time the patient had a temperature of 104 heart rate in the 150s but appeared to be in sinus. He was given fluids wide open also given IV Tylenol to control the fever he
was given dose of Ativan to help with agitation. I was at bedside for the duration of the event symptoms did improve after treatment. Otherwise urinalysis appears consistent with UTI white count elevated to 20.8 lactic acid of 9. Patient on IV
antibiotics given sepsis dose fluids. CT scan was obtained to ensure there was no infected stone which was also normal other than evidence of cystitis. Patient admitted in stable condition with significant improved symptoms over the few hours in
the ER.
*Pulse Oximetry
SaO2: 98
Oxygen Mode of Delivery: Room air
Patient hypoxic: no (96)
*Critical Care Note
Total Time (30-74mins, 75-104mins- exclusive of procedures): Not Applicable (Critical care statement: A total of 40 minutes of critical care time was provided for this patient. This includes management of unstable vital signs, evaluation of the
patient at bedside, reviewing the patient's pertinent medical records, discussion with consultants, review of old EKGs and review of)
ED Attending Note
-
Portions of this chart may have been created with voice recognition software.� Occasional wrong word or��sound alike� substitutions may have occurred due to the inherent limitations of voice recognition software.
Discharge Plan
Departure
Patient Disposition: Admit
Date of Disposition: 11/25/24
Time of Disposition: 11:32
Admit to: IMU
Admit to doctor: Sheu
Presentation/result/management discussed w/ accepting MD/DO: Hospitalist
Patient with high blood pressure during this ER visit?: No
Condition: Fair
Covid-19: Not Applicable
Discharge Problem:
Urinary tract infection, Sepsis
Prescriptions:
No Action
acetaminophen [Tylenol] 325 mg Tablet
650 mg PO Q6HPRN PRN (Reason: mild pain)
ibuprofen [Motrin] 400 mg Tablet
400 mg PO Q6HPRN PRN (Reason: fever)
rosuvastatin [Crestor] 5 mg Tablet
5 mg PO DAILY
Patient Comments:
11.25.24-patient stopped 2 days thinking his symptoms was from his statin
Referrals:
UNKNOWN - PT NOT,INTERVIEWE [Unknown Provider]
Interventions
Interventions:
*Risk Screen - Suicide Last Done: 11/25/24 07:57
*Neglect/Abuse Screening Last Done: 11/25/24 07:57
ED-Male Genitourinary Assessment Last Done: 11/25/24 08:14
Discharge Date and Time
Print Language: MALAWIAN
[2024-11-25 08:38] LABS: Urine White Cell 90-100 /HPF (0-5)
[2024-11-25] MEDS: NSS 1000 IV ×2 (08:38→13:41)
[2024-11-25 09:12] LABS: Hematocrit 47.8 % (39.0-52.0); Hemoglobin 16.2 g/dL (13.0-18.0); Mean Corp Hgb Conc. 33.9 g/dL (33.0-37.0); Mean Corpuscular Volume 87.4 fL (80.0-94.0); Nucleated Red Blood Cells % 0 % (-); Platelet Count 172 10^3/uL (130-400); Red Cell Dist. Width 12.8 % (11.5-14.5)
[2024-11-25] MEDS: ROCEPHIN 2000 MG IV (09:20)
[2024-11-25 09:22] LABS: ALT (SGPT) 31 U/L (0-50); AST (SGOT) 25 U/L (17-59); Albumin 5.1 g/dl (3.5-5.0); Alkaline Phosphatase 81 U/L (38-126); Blood Urea Nitrogen 20 mg/dl (9-20); Calcium 10.1 mg/dl (8.4-10.2); Carbon Dioxide 24 mmol/L (22-30); Chloride 104 mmol/L (98-107); Glucose 137 mg/dl (70-99); Potassium 4.5 mmol/L (3.5-5.1); Sodium 141 mmol/L (135-145); Total Protein 8.5 g/dl (6.3-8.2); eGFR > 60.00
[2024-11-25] MEDS: NSS 3200 ML IV (09:38)
[2024-11-25] MEDS: OFIRMEV 100 IV (09:38)
[2024-11-25] MEDS: VANCOCIN 540 MG IV (09:48)
--- NOTE | 2024-11-25 11:39 | HPS.HSE ---
Family Physician
-
Family Physician: Kishor Calvert,
Chief Complaint
-
Urinary symptoms
History of Present Illness
This is a 69-year-old male with past medical history of BPH, hypercholesterolemia, recurrent syncopal episodes, RBBB who presents to [facility] complaining of urinary frequency, urgency, dysuria, hesitancy and incomplete emptying ongoing for about 3 days.
The patient states he had to put a cup by his side due to the frequent amount of times he needed to empty. He denies abdominal pain, pelvic pain. He denies hematuria. He admits to fever, chills, body ache which all started 2 days ago. He denies
any urological procedure, denies history of UTI. He reports he has an history of enlarged prostate and he sees Dr. Reilly outpatient. He denies weakness, numbness, neurological symptoms.
Upon presentation to the ED, vitals with BP 167/103, pulse 117, respiratory rate 16, temperature 99.9, O2 sats 98% on room air. Laboratory showed WBC 20.8, lactate 9.0.
Pertinent to his history, he has multiple episodes in the past where he loses consciousness secondary to stress, also with syncopal episodes. In the ED today, he had an episode where he became altered and was not responding verbally. In addition,
he was given a dose of Ativan to help with agitation
Medical History
Past Medical History
Past Medical History: Reports Other (Syncope, hyperlipidemia, BPH)
Past Surgical History: Reports None
Social History
Tobacco: Non-smoker
Alcohol: Occasional
Drug: None
Personal:
Living: With Family
Employment: Employed
Family History
Family History: Not pertinent
Allergies / Home Medications
Allergies reflects when Allergies were last updated in [email or web address].
Home Medications with original date entered in [email or web address]
Allergy/Medication List:
Allergies
Allergy/AdvReac Type Severity Reaction Status Date / Time
No Known Allergies Allergy Verified 11/25/24 08:01
Home Medications
acetaminophen 325 mg tablet (Tylenol) 650 mg PO Q6HPRN PRN mild pain 05/27/24
ibuprofen 400 mg tablet 400 mg PO Q6HPRN PRN fever 11/25/24
rosuvastatin 5 mg tablet (Crestor) 5 mg PO DAILY High Cholesterol 11/25/24
Review of Systems
-
A 12 point ROS was completed and negative except as noted: Yes
Constitutional: Reports Other (All review of systems obtained and negative except as documented)
Physical Exam
Vital Signs
Vital Signs
Temp Pulse Resp BP Pulse Ox
104.2 F H 105 12 91/55 96
11/25/24 09:00 11/25/24 11:02 11/25/24 11:02 11/25/24 11:02 11/25/24 11:02
Physical Exam
General: Well Developed, No Apparent Distress and Fever
HEENT: NormoCephalic
Respiratory: Clear; No Wheezes, Rales or Rhonchi
Cardiac: S1/S2, Regular Rhythm and Tachycardia
GI: Soft, Non Tender, Non Distended and Normal Bowel Sounds
Musculoskeletal: No Edema
Skin: Warm
Neuro: Awake, Alert, Oriented and AO x 3
Psych: Calm
Laboratory Results
-
11/25/24 08:43
11/25/24 08:43
Laboratory Results
Lactic Acid 9.0 mmol/L (0.7-2.0) H* 11/25/24 08:43
Total Bilirubin 1.2 mg/dl (0.2-1.3) 11/25/24 08:43
AST 25 U/L (17-59) 11/25/24 08:43
ALT 31 U/L (0-50) 11/25/24 08:43
Alkaline Phosphatase 81 U/L (38-126) 11/25/24 08:43
Impression/Plan
-
Assessment/plan
#Sepsis secondary to UTI
-SIRS criteria met on presentation, fever, tachycardia, leukocytosis
-Urinalysis positive, urine cultures pending
-Blood cultures obtained in ED pending
-Administered IV Vanc and ceftriaxone in ED.
-Trend lactate
-CT abdomen/Pelvis- No evidence for urinary tract calculi. Bladder wall appears mildly diffusely thickened and trabeculated. Please correlate with symptoms of cystitis. Moderate enlargement of the prostate gland, extending into -the base of the
bladder. Initiated on IV vancomycin plus ceftriaxone in ED, continue this regimen
-Tylenol for fever
-Will start Cefepime
-Fluids with LR
#Hyperlipidemia
-Continue Crestor
CODE STATUS full code
DVT prophylaxis Lovenox
--- NOTE | 2024-11-25 12:41 | W.PN.UPDATE ---
Update Note
Progress Note Update
I personally performed a history and physical exam of the patient and discussed management with the resident. I reviewed the resident's note and agree with the documented findings and plan of care HPI/CC.
Gen-AAOx3, NAD
HEENT-NC, AT, anicteric, clear oral mm
Neck-supple
CV-reg, no M, +S1/S2
Lungs-clear B/L
Abd-soft, NT, ND
Ext-no edema
Musculoskeletal-no cyanosis, clubbing
Skin-warm and dry
Neuro-grossly non-focal
Psych-calm, cooperative
Sepsis due to UTI -presentation with fever, chills, leukocytosis, difficulty emptying bladder. Denies dysuria but feels a pressure sensation. Differential diagnosis of complicated cystitis versus acute prostatitis.
Lactic acidosis due to sepsis, resolved. Blood pressure dropped after Ativan administered.
CT scan does not demonstrate anatomic abnormalities or nephrolithiasis. Bladder wall appears mildly thickened and trabeculated. Moderate prostatic enlargement.
Denies history of UTI.
Admit to telemetry. Continue IV fluids, IV antibiotics. Await cultures.
Add tamsulosin to help empty bladder. Check bladder scan.
Outpatient follow-up with urology, Dr. Reilly, for BPH. He does see urology every 2 years.
Agitated delirium -became very confused and agitated in the emergency room. Required 2 doses of IV Ativan. Spouse mentions that she does have severe anxiety disorder that is exacerbated by being in the hospital. Not on anxiolytics at home. Use
Valium as needed anxiety in the hospital.
Hyperlipidemia -on lovastatin 5 mg daily at home.
History of vasovagal syncope
Obesity due to excess calories
Full code
Spouse updated at the bedside.
--- NOTE | 2024-11-25 12:55 | CM ---
CM reviewed chart and met with pt bedside in ED. Lives with his in 2 story home, 2 [address]ER[address], first floor half BA, second floor BR/full BA.
Independent in ADLs, personal care and ambulation at baseline, has raised toilet, walkers and canes available at home.
No hx VN or SNF.
Confirms prescription coverage
PCP: Kishor Calvert
Pharmacy: [facility]
Anticipate discharge home, watch for needs
[2024-11-25] MEDS: FLOMAX 0.4 MG PO (13:38)
[2024-11-25] MEDS: MAXIPIME 2000 MG IV ×2 (14:46→21:41)
[2024-11-25] MEDS: STERILE WATER FOR INJECTION 10 ML IV ×2 (14:47→21:41)
[2024-11-25] MEDS: LOVENOX 40 MG SC (17:03)
[2024-11-25] MEDS: LR 1000 IV (17:03)
--- NOTE | 2024-11-25 21:10 | PTCARENOTE ---
Per patient and , 150 mL of urine in urinal was from 2-3 voids.
[2024-11-26] VITALS (7 sets, daily range): BP systolic 130–159; BP diastolic 68–95; BMI 32.6
[2024-11-26] MEDS: LR 1000 IV ×2 (01:26→07:48)
[2024-11-26] MEDS: MAXIPIME 2000 MG IV ×3 (05:56→22:26)
[2024-11-26] MEDS: STERILE WATER FOR INJECTION 10 ML IV ×3 (05:57→22:26)
[2024-11-26] MEDS: FLOMAX 0.4 MG PO (07:46)
[2024-11-26] MEDS: CRESTOR 5 MG PO (07:47)
[2024-11-26 09:57] LABS: Hematocrit 34.8 % (39.0-52.0); Hemoglobin 11.9 g/dL (13.0-18.0); Mean Corp Hgb Conc. 34.2 g/dL (33.0-37.0); Mean Corpuscular Volume 88.3 fL (80.0-94.0); Nucleated Red Blood Cells % 0 % (-); Platelet Count 116 10^3/uL (130-400); Red Cell Dist. Width 13.1 % (11.5-14.5)
[2024-11-26 10:17] LABS: Blood Urea Nitrogen 18 mg/dl (9-20); Calcium 8.6 mg/dl (8.4-10.2); Carbon Dioxide 23 mmol/L (22-30); Chloride 110 mmol/L (98-107); Estimated Creatinine Clearance 102 ml/min; Glucose 105 mg/dl (70-99); Potassium 3.9 mmol/L (3.5-5.1); Sodium 138 mmol/L (135-145); eGFR > 60.00
--- NOTE | 2024-11-26 10:53 | CONS.URO ---
Consultation
-
Date/Time Consultation Performed: 11/26/2024 1130
Requesting Provider: Ramírez
Performing Provider: Tommie
Reason for Consultation: prostatitis, acute bacterial
Medical History
History of Present Illness
11/25/2024 AM ED note: '69-year-old male presenting to the emergency department today with concerns of frequent urination and chills achiness starting yesterday.'
Previously seen as outpatient 04/2023 for prostate cancer screening.
'I have to pee so often. But it has gotten better since last night.'
Past Medical History
Past Medical History: Hypercholesterolemia and Other (Bilateral hearing loss. Measles/mumps. Chicken pox. 'pre-diabetes'.)
Past Surgical History: None
Social History
Personal:
Allergies/Home Medications
Allergies
Allergy/AdvReac Type Severity Reaction Status Date / Time
No Known Allergies Allergy Verified 11/25/24 08:01
Home Medications
�Medication �Instructions �Recorded �Confirmed �Type
acetaminophen 325 mg tablet 650 mg PO Q6HPRN PRN mild pain 05/27/24 11/25/24 History
(Tylenol)
ibuprofen 400 mg tablet 400 mg PO Q6HPRN PRN fever 11/25/24 11/25/24 History
rosuvastatin 5 mg tablet (Crestor) 5 mg PO DAILY High Cholesterol 11/25/24 11/25/24 History
Physical Exam
Vital Signs
Vital Signs
Temp Pulse Resp BP Pulse Ox
98.6 F 91 16 150/68 93
11/26/24 08:01 11/26/24 08:01 11/26/24 08:01 11/26/24 08:01 11/26/24 08:01
Lab / Testing Results
Laboratory Results
11/26/24 08:14
11/26/24 08:14
Physical Exam
adult male
General: No Apparent Distress
GI: Soft and Non Tender
Neuro: Awake
Psych: Calm
Assessment / Plan
-
acute bacterial prostatitis
Rec: 14 day course of abx, per micro results;
Tamsulosin and Phenazopyridine
Data Reviewed
-
CT Scan: Image personally visualized and interpreted ('No evidence for urinary tract calculi. Bladder wall appears mildly diffusely thickened and trabeculated. Please correlate with symptoms of cystitis. Moderate enlargement of the prostate gland,
extending into the base of the bladder.')
Lab Data: Labs Reviewed
Old Records: Reviewed
--- NOTE | 2024-11-26 11:57 | W.PN.HOSP.TC ---
Today's Communication/Plan
-
Continue antibiotics
Stop IV fluids
Await cultures
Tamsulosin
Phenazopyridine
Melatonin
Assessment / Plan
Assessment / Plan
Gen-AAOx3, NAD
HEENT-NC, AT, anicteric, clear oral mm
Neck-supple
CV-reg, no M, +S1/S2
Lungs-clear B/L
Abd-soft, NT, ND
Ext-no edema
Musculoskeletal-no cyanosis, clubbing
Skin-warm and dry
Neuro-grossly non-focal
Psych-calm, cooperative
Sepsis due to UTI -suspect due to acute bacterial prostatitis. Sepsis improving, afebrile this morning, WBC count coming down. Lactic acidosis resolved.
Continue empiric antibiotics. Blood cultures negative so far. Urine culture shows greater than 100,000 gram-negative bacilli.
CT scan does not demonstrate anatomic abnormalities or nephrolithiasis. Bladder wall appears mildly thickened and trabeculated. Moderate prostatic enlargement.
Denies history of UTI.
Acute urinary retention -due to acute bacterial prostatitis. Urology consulted, discussed with Dr. Reilly. Hold off on Avelar catheter insertion for now. Last bladder scan 349 cc.
Acute anemia -due to IV fluid administration induced hemodilution. Monitor for now.
Acute thrombocytopenia -likely due to sepsis. Monitor for now.
Agitated delirium -in the emergency room, resolved. Has underlying anxiety disorder according to but not on meds at home.
Hyperlipidemia -on lovastatin 5 mg daily at home.
History of vasovagal syncope
Obesity due to excess calories
Full code
Spouse updated at the bedside.
Anticipated Discharge: > 48 hours
Subjective/Interval History
-
Date of Service: November 26, 2024
Patient seen and examined. Complaining of trouble voiding.
Objective Data
-
Labs:
Laboratory Results
11/26/24
08:14
WBC 16.6 H
Hgb 11.9 L D
Hct 34.8 L
Plt Count 116 L D
Sodium 138
Potassium 3.9
Chloride 110 H
Carbon Dioxide 23
BUN 18
Creatinine 0.9
Glucose 105 H
Calcium 8.6 D
Vital Signs:
Vital Signs
Temp Pulse Resp BP Pulse Ox
98.6 F 82 16 149/85 94
11/26/24 11:22 11/26/24 11:22 11/26/24 11:22 11/26/24 11:22 11/26/24 11:22
I&O
11/25/24 11/26/24 11/27/24
06:59 06:59 06:59
Intake Total 3145 / 3145
Output Total 1050 / 1050
Balance 2094
Review of Systems
-
History Source: Patient
All other systems: Reviewed and negative
[2024-11-26] MEDS: TYLENOL 650 MG PO (12:51)
--- NOTE | 2024-11-26 14:31 | CM ---
SW continues to support dc planning.
Pt plans to dc to home with no needs identified.
Initial CM Consult was placed for Adv Directives; Pt does have Living Will and Full Code is accurately reflected per pt choice.
PLAN; dc to home with no needs identified
[2024-11-26] MEDS: LOVENOX 40 MG SC (17:25)
[2024-11-26] MEDS: MELATONIN 5 MG PO (22:26)
[2024-11-27 03:00] VITALS: BP 134/83
[2024-11-27 05:45] LABS: Hematocrit 34.6 % (39.0-52.0); Hemoglobin 12.0 g/dL (13.0-18.0); Mean Corp Hgb Conc. 34.7 g/dL (33.0-37.0); Mean Corpuscular Volume 85.9 fL (80.0-94.0); Nucleated Red Blood Cells % 0 % (-); Platelet Count 110 10^3/uL (130-400); Red Cell Dist. Width 12.8 % (11.5-14.5)
[2024-11-27] MEDS: MAXIPIME 2000 MG IV (05:57)
[2024-11-27] MEDS: STERILE WATER FOR INJECTION 10 ML IV (05:58)
[2024-11-27 06:05] LABS: Blood Urea Nitrogen 13 mg/dl (9-20); Calcium 8.7 mg/dl (8.4-10.2); Carbon Dioxide 23 mmol/L (22-30); Chloride 109 mmol/L (98-107); Estimated Creatinine Clearance 114 ml/min; Glucose 112 mg/dl (70-99); Potassium 4.0 mmol/L (3.5-5.1); Sodium 138 mmol/L (135-145); eGFR > 60.00
[2024-11-27 07:00] VITALS: BP 136/88
[2024-11-27] MEDS: FLOMAX 0.4 MG PO ×2 (07:40→10:36)
[2024-11-27] MEDS: CRESTOR 5 MG PO (07:40)
[2024-11-27] MEDS: VALIUM 2 MG PO (08:28)
--- NOTE | 2024-11-27 09:15 | W.PN.HOSP.TC ---
Addendum entered and electronically signed by Isra Elmore DO 11/27/24 12:39:
Bladder scan prior to discharge was 146 cc. Discussed with nursing.
Original Note:
Today's Communication/Plan
-
Increase tamsulosin
Bowel regimen
Change to oral ciprofloxacin
Bladder scan
Discharge
Assessment / Plan
Assessment / Plan
Gen-AAOx3, NAD
HEENT-NC, AT, anicteric, clear oral mm
Neck-supple
CV-reg, no M, +S1/S2
Lungs-clear B/L
Abd-soft, NT, ND
Ext-no edema
Musculoskeletal-no cyanosis, clubbing
Skin-warm and dry
Neuro-grossly non-focal
Psych-calm, cooperative
Sepsis due to UTI -suspect due to acute bacterial prostatitis. Sepsis improving, afebrile this morning, WBC count coming down. Lactic acidosis resolved.
Continue empiric antibiotics. Blood cultures negative so far. Urine culture Klebsiella aerogenes, sensitivity noted. Convert to po ciprofloxacin, continue for 14 more days.
Phenazopyridine added as needed. Discussed with patient and that it can turn urine red.
CT scan does not demonstrate anatomic abnormalities or nephrolithiasis. Bladder wall appears mildly thickened and trabeculated. Moderate prostatic enlargement.
Denies history of UTI.
Acute urinary retention -due to acute bacterial prostatitis. Urology consulted, discussed with Dr. Reilly. Hold off on Avelar catheter insertion for now. Check bladder scan this morning, discussed with nursing.
Increase tamsulosin to 0.8 mg daily.
Suspect constipation contributing to urinary retention, bowel regimen ordered. Patient declined suppository, prefers oral agents.
Acute anemia -due to IV fluid administration induced hemodilution. Monitor for now.
Acute thrombocytopenia -likely due to sepsis. Counts are stable.
Agitated delirium -in the emergency room, resolved. Has underlying anxiety disorder according to but not on meds at home.
Hyperlipidemia -on lovastatin 5 mg daily at home.
History of vasovagal syncope
Obesity due to excess calories
Full code
Dispo -anticipate discharge home today on oral antibiotics. Outpatient follow-up with PCP and urology. Patient eager to go home, states he cannot sleep in the hospital. Feels very anxious here.
32 minutes spent in discharge process.
Spouse updated at the bedside.
Anticipated Discharge: Today
Subjective/Interval History
-
Date of Service: November 27, 2024
Patient seen and examined. Still feeling bladder pressure when he tries to urinate. Feels that he has to strain.
Objective Data
-
Labs:
Laboratory Results
11/27/24
05:16
WBC 11.8 H
Hgb 12.0 L
Hct 34.6 L
Plt Count 110 L
Sodium 138
Potassium 4.0
Chloride 109 H
Carbon Dioxide 23
BUN 13
Creatinine 0.8
Glucose 112 H
Calcium 8.7
Vital Signs:
Vital Signs
Temp Pulse Resp BP Pulse Ox
98.1 F 70 20 136/88 95
11/27/24 07:00 11/27/24 07:00 11/27/24 07:00 11/27/24 07:00 11/27/24 07:00
I&O
11/26/24 11/27/24 11/28/24
06:59 06:59 06:59
Intake Total 3145 / 3145 3385 / 3385
Output Total 1050 / 1050 1875 / 1875
Balance 2095 / 2095 1510 / 1510
Review of Systems
-
History Source: Patient
All other systems: Reviewed and negative
--- NOTE | 2024-11-27 09:22 | W.DS.TRANS ---
DC Summary - [employer]
-
Discharge Instructions:
Discharge Diagnosis/Procedures Sepsis, acute bacterial prostatitis
Diet Low Cholesterol,Low Fat
Activity As tolerated
Driving Restrictions As prior to admission
Bathing Restrictions None
Instructions:
Stand-Alone Forms:
Changes to Home Medications: No
Discharge Medications:
DC Medications w/original date entered in [employer]
rosuvastatin 5 mg tablet (Crestor) 5 mg PO DAILY High Cholesterol 11/25/24
ciprofloxacin HCl 750 mg tablet 750 mg PO BID #27 tabs 11/27/24
phenazopyridine 200 mg tablet 200 mg PO TIDPRN PRN dysuria #30 tabs 11/27/24
polyethylene glycol 3350 17 gram oral powder packet 17 g PO DAILY #0 ea 11/27/24
tamsulosin 0.4 mg capsule 0.8 mg (2 x 0.4 mg) PO DAILY #60 caps 11/27/24
Home Medication Changes
Pending Results: No
[2024-11-27] MEDS: DULCOLAX 10 MG PO (10:35)
[2024-11-27] MEDS: CIPRO 750 MG PO (10:36)
[2024-11-27 11:00] VITALS: BP 123/74
== END 2024-11-27 11:15 | disposition home or self-care (01) | DRG 872 ==
LOC: 3 WEST ACU 12:49
PROVIDERS: Physician Assistant; Student in an Organized Health Care Education/Training Program; ADMITTING PHYSICIAN Hospitalist; CONSULT PHYSICIAN Specialist; EMERGENCY PHYSICIAN Student in an Organized Health Care Education/Training Program; FAMILY PHYSICIAN Family Medicine
DX: A41.59 Other Gram-negative sepsis (principal); N41.0 Acute prostatitis; E87.20 Acidosis, unspecified; F05 Delirium due to known physiological condition; E78.00 Pure hypercholesterolemia, unspecified; I10 Essential (primary) hypertension; N40.1 Benign prostatic hyperplasia with lower urinary tract symptoms; R33.8 Other retention of urine; D69.6 Thrombocytopenia, unspecified; H91.93 Unspecified hearing loss, bilateral; D64.9 Anemia, unspecified; F41.9 Anxiety disorder, unspecified; E66.09 Other obesity due to excess calories; Z68.32 Body mass index [BMI] 32.0-32.9, adult; Z79.899 Other long term (current) drug therapy
CPT/HCPCS: 74176; 80048; 80053; 81003; 81015; 83605; 85025; 87040; 87077; 87086; 87186; 93005; 96361; 96365; 96366; 96375; 99291